=== PATIENT | male | born 1980 | race Two or more races ===

== ENCOUNTER 2021-01-03 20:31 | Inpatient (IN) | payer MEDICAID, OTHER ==
[~2021-01-03] VITALS: Ht 165.1 cm; Wt 153.8 kg
--- NOTE | 2021-01-03 21:55 | NUR ---
waiting for iv for CTA.
--- NOTE | 2021-01-03 22:12 | NUR ---
PT TRANSPORTED FROM [facility] FOR MRI. PT IS LARGER AND WOULD NOT FIR INTO THEIR MRI MACHINE. PT WENT TO [facility] FOR C/O DIZZINESS AND N/V FOR THE LAST 1-2 DAYS.
--- NOTE | 2021-01-03 22:13 | NUR ---
PT AT CT
--- NOTE | 2021-01-03 22:25 | NUR ---
PT BACK FROM CT. PT AMBULATED TO RESTROOM WITHOUT DIFFICULTY
[2021-01-03] MEDS ORDERED: OMNIPAQUE 350 MG/ML, 100ML BOTTLE ONE (22:31)
[2021-01-03 23:58] VITALS: BP 111/65
[2021-01-04] VITALS (11 sets, daily range): BP systolic 108–148; BP diastolic 56–105
[2021-01-04] MEDS ORDERED: DOCUSATE 100 MG CAPSULE PO PRN
[2021-01-04] MEDS ORDERED: ACETAMINOPHEN 650 MG/20.3 ML UDC PO PRN
[2021-01-04] MEDS ORDERED: POLYETHYLENE GLYCOL 17 GM PACKET PO PRN
[2021-01-04] MEDS ORDERED: ONDANSETRON 4 MG TABLET PO PRN
[2021-01-04] MEDS: ATORVASTATIN 40 MG TABLET PO SCH ×2 (00:17→20:22)
[2021-01-04 05:34] LABS: BASOPHILS % (AUTO) 0 % (0-1); EOSINOPHILS % (AUTO) 1 % (1-7); LYMPHOCYTES % (AUTO) 14 % (22-44); MEAN CORPUSCULAR HEMOGLOBIN 30.3 pg (27.5-34.5); MEAN CORPUSCULAR HGB CONC 33.2 g/dL (33.2-36.2); MEAN PLATELET VOLUME 9.4 fL (7.4-10.4); MONOCYTES % (AUTO) 8 % (2-9); NEUTROPHILS % (AUTO) 78 % (42-75); PLATELET COUNT 259 x10^3/uL (130-400); RED BLOOD COUNT 5.02 x10^6/uL (4.38-5.82)
[2021-01-04 05:35] LABS: MD NO
[2021-01-04 05:48] LABS: CHLORIDE 101 mmol/L (98-107)
[2021-01-04 05:54] LABS: ALANINE AMINOTRANSFERASE 50 U/L (12-78); ALBUMIN 3.3 g/dL (3.4-5.0); ALKALINE PHOSPHATASE 100 U/L (45-117); ANION GAP 5 mmol/L (5-15); BILIRUBIN,TOTAL 1.1 mg/dL (0.2-1.0); CALCIUM 9.1 mg/dL (8.5-10.1); CHOL/HDL RATIO 6.1; CHOLESTEROL, TOTAL 184 mg/dL (140-239); CREATININE 0.99 mg/dL (0.7-1.3); HDL CHOL % 16 % (26-37); HDL CHOLESTEROL (DIRECT) 30 mg/dL (40-60); LDL CHOLESTEROL,CALCULATED 113 mg/dL (54-169); LDL/HDL RATIO 3.8 (0.5-3.0); TOTAL PROTEIN 8.4 g/dL (6.4-8.2); TRIGLYCERIDES 204 mg/dL (50-200); VLDL CHOLESTEROL 41 mg/dL (0-25)
[2021-01-04] MEDS ORDERED: ENOXAPARIN 40 MG/0.4 ML SQ SCH (09:00)
[2021-01-04] MEDS: ASPIRIN 81 MG TABLET CHEW PO/NG SCH (09:59)
[2021-01-04] MEDS ORDERED: DILT120C64 PO (17:36)
[2021-01-04] MEDS ORDERED: LISI20TA21 PO (17:36)
[2021-01-04] MEDS ORDERED: FURO20TA3 PO (17:36)
[2021-01-04] MEDS ORDERED: ASPI-963 PO (17:36)
[2021-01-04] MEDS ORDERED: METF500T17 PO (17:36)
[2021-01-04] MEDS ORDERED: SPIR25TA5 PO (17:36)
[2021-01-04] MEDS ORDERED: POTA10CA PO (17:36)
[2021-01-04] MEDS ORDERED: ATOR20TA86 PO (17:36)
[2021-01-04] MEDS: INSULIN LISPRO 100 UNITS/ML, PEN SQ-INSULIN SCH ×2 (18:13→20:24)
[2021-01-04] MEDS: metFORMIN 500 MG TABLET PO SCH (19:39)
[2021-01-04] MEDS ORDERED: MELATONIN 5 MG TABLET PO PRN (23:00)
[2021-01-05 00:17] VITALS: BP 125/77
[2021-01-05 04:18] VITALS: BP 119/79
[2021-01-05] MEDS ORDERED: HEPARIN 5,000 UNITS/ML, 1ML SQ SCH (06:00)
[2021-01-05] MEDS: metFORMIN 500 MG TABLET PO SCH (06:10)
[2021-01-05] MEDS: INSULIN LISPRO 100 UNITS/ML, PEN SQ-INSULIN SCH ×2 (07:00→11:00)
[2021-01-05 08:07] VITALS: BP 136/80
[2021-01-05 08:11] VITALS: BP 149/97
[2021-01-05 08:12] VITALS: BP 159/121
[2021-01-05] MEDS: ASPIRIN 81 MG TABLET CHEW PO/NG SCH (08:24)
[2021-01-05] MEDS ORDERED: ATOR40TA78 PO (08:46)
[2021-01-05] MEDS ORDERED: ATORVASTATIN 20 MG TABLET PO SCH (09:00)
[2021-01-05] MEDS ORDERED: LISINOPRIL 20 MG TABLET PO SCH (09:00)
[2021-01-05] MEDS ORDERED: SPIRONOLACTONE 25 MG TABLET PO SCH (09:00)
[2021-01-05] MEDS ORDERED: FUROSEMIDE 20 MG TABLET PO SCH (09:00)
[2021-01-05] MEDS ORDERED: DILTIAZEM 120 MG CAP.ER.24H PO SCH (09:00)
[2021-01-05] MEDS ORDERED: ASPIRIN 81 MG TABLET EC PO SCH (09:00)
== END 2021-01-05 12:04 | disposition home or self-care (01) | DRG 111 ==
LOC: ED 21:39 → EDIP 23:17 → 4EST 23:48 → DCLOUNGE 01-05 11:54
PROVIDERS: ADMIT Family Medicine; ATTEND Internal Medicine
DX: R42 Dizziness and giddiness (principal); I50.9 Heart failure, unspecified; I11.0 Hypertensive heart disease with heart failure; G93.89 Other specified disorders of brain; E11.9 Type 2 diabetes mellitus without complications; E66.2 Morbid (severe) obesity with alveolar hypoventilation; Z68.43 Body mass index [BMI] 50.0-59.9, adult; E78.5 Hyperlipidemia, unspecified; F17.210 Nicotine dependence, cigarettes, uncomplicated; Z83.3 Family history of diabetes mellitus; Z86.73 Personal history of transient ischemic attack (TIA), and cerebral infarction without residual deficits; Z79.899 Other long term (current) drug therapy; Z79.82 Long term (current) use of aspirin; Z79.84 Long term (current) use of oral hypoglycemic drugs
CPT/HCPCS: 70496; 70498; 70551; 80053; 80061; 82962; 83036; 85025; 93005; 93321; 93325; 99285; G0378; J1644; J1650; Q9967; C8924; J1815